=== PATIENT | female | born 1945 | race Caucasian/White ===

== ENCOUNTER 2022-11-30 12:16 | Outpatient (REF) | payer MEDICARE, SELFPAY ==
--- NOTE | 2022-11-30 11:30 | NASALBX_PTH ---
PATIENT: Sol Garrett LOC: [facility] U#:[id number] AGE/SX: 77/F ROOM: RE11/30/[address]: Javier Pan MD : 1945 BED: DIS: 11/30/2022 SPEC #: [id number] RECD: 11/30/22 18:23 STATUS: ANNAMARIE REQ #: [id number] MARÍA: 11/30/22 11:[address]: Javier Pan DEPT: Surgical Specimen RECD BY: Giovana Cevallos ENTERED: 11/30/22 18:25 SP TYPE: NASALBX OTHR DR: Krupa Cortes Tissues: 1 - MUCOSA, NOS Procedures: GROSS AND MICRO LEVEL 4 Comments: [id number]
== END 2022-11-30 12:17 | disposition home or self-care (01) ==
LOC: LBN 12:16
PROVIDERS: PCP Family Medicine; Visit Provider Otolaryngology
DX: L82.1 Other seborrheic keratosis (principal); J34.89 Other specified disorders of nose and nasal sinuses
CPT/HCPCS: 88305